=== PATIENT | male | born 1975 | race Two or more races ===

== ENCOUNTER 2017-08-14 10:41 | Emergency (ER) | payer OTHER ==
[~2017-08-14] VITALS: Ht 177.8 cm; Wt 88.5 kg
[~2017-08-14 10:41] MED LIST: NO REPORTABLE MEDS
--- NOTE | 2017-08-14 10:45 | NUR ---
LEFT CP NON RADIATING X1 DAY [employer] SOB THIS AM. DENIES N/V/D, NAD NOTED, VSS, RESP EVEN AND UNLABORED, PT WAS PUT ON MONITOR, AND HOSPITAL GOWN. WAITING FOR MD CORTES
[2017-08-14] MEDS ORDERED: NAPROXEN 250 MG TABLET ONE (11:21)
[2017-08-14] MEDS ORDERED: NAPROXEN 250 MG TABLET PO ONE (11:30)
--- NOTE | 2017-08-14 11:37 | NUR ---
pt refused iv insert, but agreed to iv blood draw. aware.
[2017-08-14 11:46] LABS: EOSINOPHILS # (AUTO) 0.1 /CMM (0.0-0.7); EOSINOPHILS % (AUTO) 1.3 % (0.0-6.0); HEMATOCRIT 45 % (39-51); HEMOGLOBIN 15.2 g/dL (13.5-17.5); LYMPHOCYTES % (AUTO) 39.5 % (20.0-44.0); MEAN CORPUSCULAR HEMOGLOBIN 31 PG (26.0-33.0); MEAN CORPUSCULAR HGB CONC 34 g/dl (31.0-36.0); MEAN CORPUSCULAR VOLUME 91 fL (80-96); MONOCYTES # (AUTO) 0.5 /CMM (0.1-1.30); MONOCYTES % (AUTO) 9.3 % (2.0-12.0); NEUTROPHILS # (AUTO) 2.4 /CMM (1.8-8.9); NEUTROPHILS % (AUTO) 48.9 % (43.0-81.0); PLATELET COUNT (AUTO) 280 /CMM (150-450); RED BLOOD CELL COUNT(AUTO) 4.91 MIL/uL (4.5-6.0)
[2017-08-14 11:54] LABS: CALCIUM, SERUM 9.1 mg/dL (8.5-10.1); CARBON DIOXIDE 30 mmol/L (21-32); CHLORIDE 102 mmol/L (98-107); CREATININE 0.9 mg/dL (0.6-1.3); GLUCOSE 107 mg/dL (74-106); POTASSIUM 4.4 mmol/L (3.5-5.1); SODIUM SERUM 138 mmol/L (136-145); UREA NITROGEN, BLOOD 9 mg/dL (7-18)
[2017-08-14 11:58] LABS: INR 1.07 (0.85-1.15)
[2017-08-14 12:04] LABS: TROPONIN I < 0.017 ng/mL (0.00-0.056)
[2017-08-14 12:42] VITALS: BP 129/80
--- NOTE | 2017-08-14 12:43 | NUR ---
Patient discharged to home in stable condition. Written and verbal after care instructions given. Patient verbalizes understanding of instruction. Prescription given.
== END 2017-08-14 12:45 | disposition home or self-care (01) ==
LOC: ER 10:43
DX: R07.89 Other chest pain (principal); F10.10 Alcohol abuse, uncomplicated
CPT/HCPCS: 36415; 71045; 80048; 84484; 85025; 85730; 93005 ×2; 99285; A4606; Z7610

== ENCOUNTER 2023-06-05 08:55 | Emergency (ER) | payer OTHER ==
[~2023-06-05] VITALS: Ht 177.8 cm; Wt 88.5 kg
[2023-06-05 09:07] VITALS: BP 117/92; TEMP 98.2
[2023-06-05 09:32] LABS: APPEARANCE,URINE SLIGHTLY CLOUDY (CLEAR); BILIRUBIN,URINE NEGATIVE (NEGATIVE); BLOOD, URINE 3+ Ery/uL (NEGATIVE); COLOR,URINE YELLOW (YELLOW); KETONES,URINE NEGATIVE (NEGATIVE); LEUKOCYTE ESTERASE ,URINE TRACE (NEGATIVE); NITRITE, URINE NEGATIVE (NEGATIVE); PROTEIN,URINE 2+ mg/dl (NEGATIVE); UGLUCOSE NEGATIVE (NEGATIVE)
[2023-06-05 10:11] LABS: RBC,URINE 21-50 /HPF (0-2)
[2023-06-05 10:18] LABS: ADD URINE CULTURE YES; BACTERIA,URINE Few /HPF (None Seen); SQUAMOUS EPITHELIAL CELL,UR Rare /HPF (None Seen); WBC,URINE 51-80 /HPF (0-3)
[2023-06-05] MEDS ORDERED: CEFD300C3 PO (10:29)
[2023-06-05 10:33] VITALS: O2SAT 98
== END 2023-06-05 10:33 | disposition home or self-care (01) ==
LOC: ER 08:59
DX: N39.0 Urinary tract infection, site not specified (principal); R30.0 Dysuria
CPT/HCPCS: 81001; 87086-TC

== ENCOUNTER 2024-08-23 22:53 | Emergency (ER) | payer OTHER ==
[~2024-08-23] VITALS: Ht 177.8 cm; Wt 99.8 kg
[~2024-08-23 22:53] MED LIST changes: +CEFD300C3 PO
[2024-08-23] MEDS ORDERED: ONDANSETRON HCL/PF 4 MG/2 ML VIAL ONE (23:20)
[2024-08-23] MEDS ORDERED: METOCLOPRAMIDE HCL 10 MG/2 ML VIAL ONE (23:20)
[2024-08-23 23:22] LABS: BASOPHILS # (AUTO) 0.1 K/uL (0.0-0.2); BASOPHILS % (AUTO) 0.9 % (0.0-2.0); EOSINOPHILS % (AUTO) 0.2 % (0.0-6.0); HEMATOCRIT 40 % (39-51); HEMOGLOBIN 13.8 g/dL (13.5-17.5); LYMPHOCYTES # (AUTO) 1.9 K/uL (0.8-4.8); LYMPHOCYTES % (AUTO) 24.3 % (20.0-44.0); MEAN CORPUSCULAR HEMOGLOBIN 32 PG (26.0-33.0); MEAN CORPUSCULAR HGB CONC 34 g/dl (31.0-36.0); MEAN CORPUSCULAR VOLUME 94 fL (80-96); MONOCYTES # (AUTO) 0.5 K/uL (0.1-1.30); MONOCYTES % (AUTO) 6.9 % (2.0-12.0); NEUTROPHILS # (AUTO) 5.3 K/uL (1.8-8.9); NEUTROPHILS % (AUTO) 67.7 % (43.0-81.0); PLATELET COUNT (AUTO) 202 K/uL (150-450); RED BLOOD CELL COUNT(AUTO) 4.27 MIL/uL (4.5-6.0); RED CELL DISTRIBUTION WIDTH 12.1 % (11.5-15.0); WHITE BLOOD COUNT (AUTO) 7.8 K/uL (4.3-11.0)
[2024-08-23] MEDS: KETOROLAC TROMETHAMINE INJ 30 MG/ML VIAL IV ONE (23:25)
[2024-08-23] MEDS: ONDANSETRON HCL/PF 4 MG/2 ML VIAL IVP ONE (23:25)
[2024-08-23] MEDS: IV NS 0.9% 1,000 ML BAG IV ONE (23:25)
[2024-08-23] MEDS: METOCLOPRAMIDE HCL 10 MG/2 ML VIAL IV ONE (23:27)
[2024-08-23 23:33] LABS: CALCIUM, SERUM 9.6 mg/dL (8.5-10.1); CREATININE 0.9 mg/dL (0.6-1.3); POTASSIUM 3.7 mmol/L (3.5-5.1)
[2024-08-23 23:39] LABS: ALBUMIN 4.2 g/dL (3.4-5.0); BILIRUBIN,DIRECT 0.2 mg/dL (0.0-0.2); BILIRUBIN,TOTAL 0.6 mg/dL (0.2-1.0); TOTAL PROTEIN, SERUM 7.4 g/dL (6.4-8.2)
[2024-08-24] MEDS ORDERED: ONDA4TAB11 PO (00:20)
[2024-08-24 00:39] VITALS: BP 129/85; TEMP 98.2; O2SAT 98
== END 2024-08-24 00:40 | disposition home or self-care (01) ==
LOC: ER 22:54
DX: R10.33 Periumbilical pain (principal); R11.2 Nausea with vomiting, unspecified; Z60.2 Problems related to living alone
CPT/HCPCS: 99284; 96374; 96375; 96361; 85025; 80048; 83690; 80076; 36415; J1885; J2765; J2405; J7030

== ENCOUNTER 2025-04-10 13:39 | Emergency (ER) | payer OTHER ==
[~2025-04-10] VITALS: Ht 177.8 cm; Wt 97.5 kg
[~2025-04-10 13:39] MED LIST changes: +ONDA4TAB11 PO
[2025-04-10 14:26] LABS: PLATELET COUNT (AUTO) 260 K/uL (150-450); RED BLOOD CELL COUNT(AUTO) 4.39 MIL/uL (4.5-6.0); RED CELL DISTRIBUTION WIDTH 12.6 % (11.5-15.0); WHITE BLOOD COUNT (AUTO) 7.8 K/uL (4.3-11.0)
[2025-04-10 14:39] LABS: CALCIUM, SERUM 9.1 mg/dL (8.5-10.1); CREATININE 0.9 mg/dL (0.6-1.3); SODIUM SERUM 137 mmol/L (136-145); UREA NITROGEN, BLOOD 15 mg/dL (7-18)
[2025-04-10 15:35] VITALS: BP 145/82; TEMP 98.5; O2SAT 100
== END 2025-04-10 15:36 | disposition home or self-care (01) ==
LOC: ER 13:55
DX: R07.89 Other chest pain (principal); R11.0 Nausea
CPT/HCPCS: 36415; 71045-TC; 80048-TC; 84484-TC; 85025-TC

== ENCOUNTER 2025-05-25 18:16 | Emergency (ER) | payer OTHER ==
[~2025-05-25] VITALS: Ht 177.8 cm; Wt 104.3 kg
[2025-05-25] MEDS: IV NS 0.9% 1,000 ML BAG IV ONE (18:56)
[2025-05-25 19:15] LABS: PLATELET COUNT (AUTO) 249 K/uL (150-450); RED BLOOD CELL COUNT(AUTO) 4.27 MIL/uL (4.5-6.0); RED CELL DISTRIBUTION WIDTH 12.4 % (11.5-15.0); WHITE BLOOD COUNT (AUTO) 5.8 K/uL (4.3-11.0)
[2025-05-25 19:28] LABS: CALCIUM, SERUM 8.8 mg/dL (8.5-10.1); CREATININE 0.9 mg/dL (0.6-1.3); SODIUM SERUM 143.0 mmol/L (136-145); UREA NITROGEN, BLOOD 11.0 mg/dL (7-18)
[2025-05-25 19:32] LABS: ASPARTATE AMINOTRANSFERASE 61.0 U/L (15-37); TOTAL PROTEIN, SERUM 7.3 g/dL (6.4-8.2)
[2025-05-25 20:06] VITALS: BP 111/68; TEMP 98; O2SAT 96
== END 2025-05-25 20:07 | disposition home or self-care (01) ==
LOC: ER 18:30
DX: R55 Syncope and collapse (principal); Z60.2 Problems related to living alone
CPT/HCPCS: 99285; 96360; 71045; 93005 ×2; 85025; 36415; 80053; 84484; J7030